=== PATIENT | female | born 1995 | race Caucasian/White ===

== ENCOUNTER 2019-09-13 14:55 | Emergency (ER) | payer SELFPAY ==
[2019-09-13 15:11] VITALS: BP 129/79
--- NOTE | 2019-09-13 15:16 | UC ---
Throat Pain/Nasal John HPI - HPI Summary HPI Summary: 24 yo female presents with URI symptoms. She tells me that over the last week she has had cold symptoms with sinus congestion and a mild cough. Over the last 3 days has had sinus pain/pressure, sore throat, and a productive cough with yellow sputum. She has been taking sudafed with no relief. She did feel nauseous yesterday, but feels better today and is eating, drinking, and tolerating po well. Denies fever, chills, rash, SOB, abdominal pain, dysuria. - History of Current Complaint Chief Complaint: UCRespiratory Stated Complaint: COUGH, SORE THROAT Time Seen by Provider: 09/13/19 15:16 Hx Obtained From: Patient Hx Last Menstrual Period: 09/13/19 Onset/Duration: Sudden Onset Severity: Moderate Pain Intensity: 8 Pain Scale Used: 0-10 Numeric - Allergies/Home Medications Allergies/Adverse Reactions: Allergies Allergy/AdvReac Type Severity Reaction Status Date / Time No Known Allergies Allergy Verified 09/13/19 15:11 Home Medications: Home Medications Mag Hydrox/Aluminum Hyd/Simeth [Mylanta Maximum Strength Liq] 355 ml PO Q4HR PRN 09/13/19 [History Confirmed 09/13/19] Pseudoephedrine HCL ER TAB* [Sudafed 12 Hour*] 120 mg PO Q12HR 09/13/19 [ History Confirmed 09/13/19] PMH/Surg Hx/FS Hx/Imm Hx - Additional Past Medical History Additional PMH: None - Surgical History Surgical History: Yes Surgery Procedure, Year, and Place: tonsillectomy; adenoids removed; tubes bilat ears x 4 - Family History Known Family History: Positive: None - Social History Occupation: Employed Full-time Lives: With Family Alcohol Use: None Substance Use Type: Marijuana Substance Use Comment - Amount & Last Used: daily Smoking Status (MU): Current Some Day Smoker - Immunization History Vaccination Up to Date: Yes Review of Systems All Other Systems Reviewed And Are Negative: No Constitutional: Positive: Negative Skin: Positive: Negative Eyes: Positive: Negative ENT: Positive: Sore Throat, Nasal Discharge, Sinus Congestion, Sinus Pain/ Tenderness Respiratory: Positive: Cough Cardiovascular: Positive: Negative Gastrointestinal: Positive: Negative Neurovascular: Positive: Negative Neurological: Positive: Negative Psychological: Positive: Negative Physical Exam - Summary Physical Exam Summary: GENERAL: NAD. WDWN. No pain distress. SKIN: No rashes, sores, lesions, or open wounds. HEENT: Head: AT/NC Eyes: EOM intact. Conjunctiva clear without inflammation or discharge. Ears: Hearing grossly normal. TMs intact, no bulging, erythema, or edema. Nose: Nasal mucosa mildly swollen and erythematous with yellow/ clear discharge. TTP maxillary and frontal sinus. Positive post nasal drip Throat: Posterior oropharynx with moderate erythema. No tonsillar enlargement. Uvula midline. NECK: Supple. Mild TTP tonsillar b/l LAD CHEST: CTAB. No r/r/w. No accessory muscle use. Breathing comfortably and in no distress. CV: RRR. Pulses intact. NEURO: Alert. PSYCH: Age appropriate behavior. Triage Information Reviewed: Yes Vital Signs: Initial Vital Signs Temp 99.7 F 09/13/19 15:05 Pulse 82 09/13/19 15:05 Resp 16 09/13/19 15:05 BP 129/79 09/13/19 15:05 Pulse Ox 98 09/13/19 15:05 Laboratory Tests 09/13/19 15:32 Group A Strep Rapid Negative Vital Signs Reviewed: Yes Throat Pain/Nasal Course/Dx - Course Course Of Treatment: POC strep negative. Suspect sinusitis/pharyngitis - Differential Dx/Diagnosis Provider Diagnosis: Sinusitis, Pharyngitis Discharge ED - Sign-Out/Discharge Documenting (check all that apply): Patient Departure All imaging exams completed and their final reports reviewed: No Studies - Discharge Plan Condition: Stable Disposition: HOME Prescriptions: Amoxicillin/Clavulanate TAB* [Augmentin TAB 875*] 875 mg PO BID #14 tab Patient Education Materials: Pharyngitis (ED), Sinusitis (ED) Forms: *Work Release Referrals: Arlene Burt MD [Primary Care Provider] - Additional Instructions: If you develop a fever, shortness of breath, chest pain, new or worsening symptoms - please call your PCP or go to the ED immediately. - Billing Disposition and Condition Condition: STABLE Disposition: Home
== END 2019-09-13 15:52 | disposition home or self-care (01) ==
LOC: UCEAST 14:55
DX: J32.9 Chronic sinusitis, unspecified (principal); J02.9 Acute pharyngitis, unspecified; F17.200 Nicotine dependence, unspecified, uncomplicated
CPT/HCPCS: 87070; 87651; 99202; G0463